=== PATIENT | male | born 1985 | race African-American/Black ===

== ENCOUNTER 2020-11-08 16:51 | Emergency (ER) | payer SELFPAY ==
[2020-11-08 17:18] VITALS: BP 172/99
[2020-11-08] MEDS ORDERED: KETOROLAC 60MG/2ML VIAL IM ONE (17:45)
[2020-11-08] MEDS ORDERED: IBUP-2029 MT (18:14)
== END 2020-11-08 18:39 | disposition home or self-care (01) ==
LOC: ER 16:51
DX: M25.511 Pain in right shoulder (principal); I10 Essential (primary) hypertension; Z88.8 Allergy status to other drugs, medicaments and biological substances
CPT/HCPCS: 73030; 96372; 99283; J1885; A4565